=== PATIENT | male | born 1965 | race Caucasian/White ===

== ENCOUNTER → 2018-05-09 08:49 | Outpatient (CLI) | payer OTHER, SELFPAY ==
--- NOTE | 2018-05-09 | FLU_PTH ---
PATIENT: ANAYA KRAUSE LOC: [facility] U#:[id number] AGE/SX: 59/M ROOM: RE05/09/[address]: Dr. Kameron Lepe MD : 1965 BED: DIS: SPEC #: [id number] RECD: 05/09/18 13:02 STATUS: MARICARMEN FARFAN #: [id number] SUJATA: 05/09/18 00:[address]: Kameron Lepe DEPT: CYTOLOGY RECD BY: Sonu Hammonds ENTERED: 05/09/18 13:02 SP TYPE: Fluid OTHR DR: Dr. Ellen Curry MD Tissues: Neck, NOS Procedures: Pap Stain (control) Special Stain Group II Surgery Specimen Level IV Diff Quik Stain (control) Cell Block Cytospin Fluid Fine Needle Asp on Site HEADER OPERATION: FNA left lower neck mass PRE-OP DIAGNOSIS: Left lower neck mass TISSUE SUBMITTED: FNA left lower neck mass, smear and fluid for cytology and cell block DIAGNOSIS CYTOLOGY Fine needle aspiration, left lower neck mass (smears and cell block): Blood. Rare epithelioid/histiocytic cells. AM:christopher 05/12/18 COMMENT The specimen is evaluated at the time of FNA by Dr. Barraza. Immediate Evaluation = Blood and rare benign epithelial cells. There is no evidence of malignancy. The aspirate specimen primarily contains blood and possibly rare histiocytes. A cystic hemorrhagic lesion cannot be entirely excluded. An image-guided needle aspiration is recommended if clinically indicated. Case has been reviewed in consultation with Dr. Paige who concurs with the above diagnosis. IDC:[facility] CYTOLOGY STUDY Slides are reviewed. CYTOLOGY GROSS Received is 0.5 ml of red-barraza fluid labeled with the patient's name, and designated left lower neck mass. Six imprints and five paps are made from the submitted fluid and the rest is added to CytoLyt for cell block preparation. Submitted for cytology study. / AM:christopher 05/09/18 TC:5 CPT: 20149, 92842, 25063, 72415 ADDENDUM ADDENDUM ADDENDUM ADDENDUM ADDENDUM ADDENDUM ADDENDUM ADDENDUM ADDENDUM ADDENDUM ADDENDUM 08/04/2018 10:42 ADDENDUM 08/04/2018 10:42 ADDENDUM 08/04/2018 10:42 ADDENDUM 08/04/2018 10:42 ADDENDUM 08/04/2018 10:42 This addendum is added to incorporate an outside pathology consultation report. The case was examined at [facility] (#[id number]) and the following diagnosis was rendered. Neck mass, left lower, fine needle aspiration: Rare atypical cells of uncertain significance. Predominantly blood. Please see complete above mentioned consultation report in EMR
== END ==
PROVIDERS: Referring Provider Otolaryngology; Visit Provider Otolaryngology
DX: R22.1 Localized swelling, mass and lump, neck (principal)
CPT/HCPCS: 10021; 88108; 88305; 88313

== ENCOUNTER 2018-07-08 11:15 | Day surgery (SDC) | payer SELFPAY ==
--- NOTE | 2018-07-02 13:48 | EKG12_ITS ---
Test Reason : PRE OP Blood Pressure : / mmHG Vent. Rate : 074 BPM Atrial Rate : 074 BPM P-R Int : 168 ms QRS Dur : 088 ms QT Int : 382 ms P-R-T Axes : 069 066 075 degrees QTc Int : 424 ms Normal sinus rhythm Normal ECG Confirmed by MAGDY RICH ([id number]), photograph editor DENIZ DUFFY ([id number]) on 07/04/2018 1:08:52 PM Referred By: Kristian Lepe Confirmed By:MAGDY RICH
[2018-07-02 15:07] LABS: Hematocrit 43.6 % (40-54); Hemoglobin 14.6 g/dl (13.0-16.5); Mean Corp Hgb Conc 33.5 g/gl (32-36); Mean Corpuscular Hgb 30.5 pg (27.0-32.0); Mean Platelet Vol. 9.7 fl (6.2-12.0); Platelet Count 207 K/mm3 (150-450); RBC Distribution Width CV 12.7 % (11.6-14.6); RBC Distribution Width SD 41.7 fl (35.1-43.9); Red Blood Count 4.79 M/mm3 (4.6-6.2); White Blood Count 5.3 K/mm3 (4.4-11.0)
[2018-07-02 15:14] LABS: Scan Indicated on CBC? Y/N NO
[2018-07-02 15:33] LABS: Anion Gap 6 (5-15); BUN 12 mg/dL (7-18); BUN/Creat Ratio 12.6 RATIO (10-20); Calcium,Total 8.7 mg/dL (8.5-10.1); Chloride 109 mmol/L (98-107); Creatinine, Serum 0.96 mg/dL (0.70-1.30); EST Glomerular Filtration Rate 87 mL/min (>60); Est Glom Filt Rate - Afr Amer 105 mL/min (>60); Glucose 93 mg/dL (74-106); Potassium 3.9 mmol/L (3.5-5.1); Sodium Level 143 mmol/L (136-145)
[2018-07-08 12:22] VITALS: BP 124/73; PULSE 80; RESP 18; TEMP 36.8; O2SAT 98; BMI 29.5
--- NOTE | 2018-07-08 12:57 | PCM.OPRPT ---
Problem List (1) Thyroid mass Status: Chronic Report of Operation Date of Procedure: 07/08/18 Pre-Operative Diagnosis: thyroid mass, left Post-Operative Diagnosis: thyroid mass, left Surgery/Procedure Performed:: aborted total thyroid lobectomy, left Type of Anesthesia:: General Description of Procedure: on the day of the procedure, after appropriate informed consent was obtained, the patient was brought to the operating room and placed in supine position on the operating table. he was placed under general endotracheal anesthesia by the anesthesiologist. the eyes were taped. a shoulder roll was placed and the glide scope was used to confirm correct NIM tube placement. the neck was injected with lidocaine/epinephrine, and prepped and draped in sterile fashion. a #15 blade was used to make an incision transversely over the left low neck. the platysma was divided. the infrahyoid strap muscles were divided along their midline raphe. the superficial then deep straps were dissected off of the thyroid gland. the inferior pole was exposed. at this point the thyroid lobe was examined in its entirety and noted to be dramatically larger than prior ultrasound results. the airway was also significantly deviated. the inferior pole was posterior to the clavicle. the entire gland was very hypervascular and episodic bleeding was frequently encountered. given the >10cm size of the nodule and lack of readily available resources (access to transfusion products, thoracic surgery, etc), it was deemed safest to obtain hemostasis and close. the nerve was not dissected or traced. hemostasis was obtained with the bipolar. the platysma and overlying skin were closed with a combination of 3-0 vicryl and 5-0 prolene. the patient was awoken from anesthesia and transferred to the PACU in stable condition. there was no stridor or airway symptoms after extubation.
--- NOTE | 2018-07-08 13:02 | PCM.DC ---
- Discharge Diagnoses Current Active Problems: Current Active and Chronic Problems Thyroid mass (Chronic) You will use the following diet at home:: No restrictions Discharge Activity: May not drive while taking narcotic pain medications. Call your doctor if your incision/area has: Sudden Increased Bleeding, Increased Pain/ Swelling Additional Dressing/Incision Instructions:: mupirocin on incision twice daily. record [place] drain output Allergies/Adverse Reactions: Allergies aspirin [ASA] Allergy (Verified 07/03/18 08:59) Other NOSE BLEEDS Medications to take at Discharge Multivitamin [Daily Multiple Vitamin] 1 each PO DAILY 07/03/18 Amoxicillin 875 mg PO BID #6 tab 07/08/18 Hydrocodone Bitart/Apap 5-325 [[place] 5MG-325MG] 1 tab PO Q6H PRN PRN 4 Days #12 tab 07/08/18 The following prescriptions were given: Hydrocodone Bitart/Apap 5-325 [[place] 5MG-325MG] 1 tab PO Q6H PRN PRN 4 Days #12 tab PRN Reason: Pain Amoxicillin 875 mg PO BID #6 tab Primary Care Physician: Ellen Curry MD [Primary Care Provider] - Test Results: Test results from this visit will be discussed in further detail at your follow-up appointment, if applicable. Please Follow Up With: Luis Walls MD When: 1 day
[2018-07-08] MEDS: Mupirocin Ointment 22gm Tube 1 APPLIC (15:03)
[2018-07-08 15:21] VITALS: BP 124/73; BP 132/89; PULSE 85; RESP 18; TEMP 36.7; O2SAT 95
[2018-07-08 15:31] VITALS: BP 124/73; BP 127/91; PULSE 97; RESP 18; O2SAT 98
[2018-07-08 15:45] VITALS: BP 124/73; BP 135/84; PULSE 97; RESP 18; O2SAT 99
[2018-07-08 16:00] VITALS: BP 124/73; BP 137/92; PULSE 92; RESP 18; TEMP 36.3; O2SAT 97
[2018-07-08 17:03] VITALS: BP 124/73; BP 136/76; PULSE 100; RESP 16; TEMP 36.6; O2SAT 99
== END 2018-07-08 17:04 | disposition home or self-care (01) ==
LOC: SDC 11:17 → AC 11:22
PROVIDERS: Referring Provider Otolaryngology; Visit Provider Otolaryngology
PROC: (CPT 60225; principal; 2018-07-08 12:40)
DX: E07.9 Disorder of thyroid, unspecified (principal); Z53.8 Procedure and treatment not carried out for other reasons
CPT/HCPCS: 00320; 60225; 36415; 80048; 85027; 93005; J7120; J2405

== ENCOUNTER → 2018-07-16 07:35 | Outpatient (CLI) | payer SELFPAY ==
[2018-07-08 12:22] VITALS: BMI 29.5
--- NOTE | 2018-07-16 07:38 | CT_ITS ---
STUDY: CT SOFT TISSUE NECK WITH CONTRAST REASON FOR EXAM: Male, 52 years old. Left thyroid mass x 1 year, ENT attempted surgery 07/08/18, but closed without doing anything. Needs further workup.. RADIATION DOSAGE (If Supplied By Facility): CTDIvol = ( 21.95 ) mGy, DLP = ( 773.16 ) mGycm TECHNIQUE: The patient was scanned in a multi-detector CT scanner. High resolution transaxial imaging was performed following intravenous administration of Isovue 370 75mL IV. Sagittal and coronal images were reconstructed. Individualized dose optimization techniques were used for this CT. COMPARISON: None. FINDINGS: Normal bilateral parotid glands. Normal bilateral crab fisherman spaces. Normal bilateral parapharyngeal spaces. Normal bilateral carotid spaces. Normal bilateral sublingual and submandibular glands and spaces. Normal visualized nasopharynx. Normal retropharyngeal space. Normal perivertebral space. Normal visualized bilateral faucial tonsils. The visualized tongue, tongue base and oropharynx are normal. The visualized cervical lymph nodes (levels I-) are within normal size limits, and maintain normal morphology. Normal epiglottis, bilateral vallecula and hypopharynx. The pre-epiglottic and paraglottic adipose spaces are normal. Normal visualized bilateral piriform sinuses, aryepiglottic folds, vocal cords, and arytenoid-cricoid articulations. Normal subglottic trachea. There is a 5.5 x 5.5 x 8.0 cm mass at the left thyroid region with deviation of the trachea to the right. The trachea remains widely patent. There are overlying edema and foci of air, consistent with history of recent surgery. Normal visualized pulmonary apices. Normal visualized paranasal sinuses. Normal visualized cervical spine. CT/Soft Tissue Neck without Contr IMPRESSION: 8 cm left thyroid mass. Foci of air and edema, consistent with recent surgery. Electronically Signed: Caity Del Toro MD at 8:42 EDT Tel , Service support ,
== END ==
PROVIDERS: Referring Provider Otolaryngology; Visit Provider Otolaryngology
DX: E04.1 Nontoxic single thyroid nodule (principal)
CPT/HCPCS: 70490; Q9967